=== PATIENT | female | born 1940 | race Caucasian/White ===

== ENCOUNTER 2020-10-22 05:55 | Day surgery (SDC) | payer MEDICARE, BC ==
[2020-10-22] MEDS ORDERED: Midazolam 1 MG/ML 2 ML SDV ONE (07:25)
[2020-10-22] MEDS ORDERED: Propofol 200 MG/20 ML SDV ONE (07:25)
[2020-10-22] MEDS ORDERED: Dextrose 5%-Lactated Ringers 1,000 ML IV SCH (07:30)
[2020-10-22] MEDS ORDERED: ceFAZolin 1 GM in Premix Bag 1 BAG IV ONE (07:30)
[2020-10-22 08:54] VITALS: BP 105/71; PULSE 62
--- NOTE | 2020-10-28 12:24 | OR ---
DATE OF PROCEDURE: 10/22/2020 SURGEON: Rohit Houser MD PREOPERATIVE DIAGNOSIS: Postprandial abdominal discomfort, status post Lena fundoplication. POSTOPERATIVE DIAGNOSES: 1. Postprandial abdominal discomfort, status post Lena fundoplication. 2. Intact Lena fundoplication with small paraesophageal hiatal hernia adjacent to Lena fundoplication but with Lena fundoplication grossly in place. OPERATIVE PROCEDURE: Esophagogastroduodenoscopy with antral biopsies for CLOtest. ANESTHESIA: IV sedation. INDICATION FOR PROCEDURE: This is a 80-year-old status post Lena fundoplication in 2010. Recently, she has had more problems with postprandial abdominal discomfort primarily in the epigastric area with a sense of fullness and bloating after eating. The plan is to proceed with an upper endoscopy with biopsies as indicated. Potential risks including bleeding and perforation were discussed, and the patient wishes to proceed. DETAILS OF PROCEDURE: The patient was taken to the operating room and placed in a left lateral decubitus position. IV sedation was administered, after which the upper GI endoscope was passed orally through the length of the esophagus, into the stomach with retroflexion view of the fundus, thereafter through the pyloric channel and into the proximal duodenum. Findings included normal hypopharynx, larynx, upper esophageal sphincter, and esophageal body. At the EG junction, the patient had an intact Lena effect. There was no gross inflammation present, and the scope easily passed through the area of fundoplication. Retroflexion showed the fundoplication to be in the correct location, i.e. below the level of the diaphragm. There was a small paraesophageal hernia after the right of the fundoplication without any associated inflammation, and this was unlikely to be significantly symptomatic. There was quite a bit of retained bile within the stomach. Otherwise, no retained food was seen. Pyloric channel and duodenum at the junction of the third and fourth portions were unremarkable. Biopsies were then obtained from the antrum and sent for CLOtest for H pylori. Minimal bleeding from biopsy sites was seen and the procedure then concluded. At this point, the patient by history is suggestive of having some element of poor gastric emptying and was started on a course of Zithromax 250 mg a day. I will see her back in 3 weeks for recheck to see how that is doing in terms of symptom control. Rohit Houser MD /[id number]
== END 2020-10-22 09:07 | disposition home or self-care (01) ==
LOC: JP.SDS 05:55
PROVIDERS: ATTEND Surgery
DX: K44.9 Diaphragmatic hernia without obstruction or gangrene (principal); G47.33 Obstructive sleep apnea (adult) (pediatric); Z98.890 Other specified postprocedural states
CPT/HCPCS: 43239; 87081; J0690; J2250; J2704; J7121